=== PATIENT | female | born 1970 | race African-American/Black ===

== ENCOUNTER 2017-11-17 01:40 | Emergency (ER) | payer OTHER ==
[2017-11-17 02:09] VITALS: BP 134/80
--- NOTE | 2017-11-17 16:41 | EKG REPORT ---
SEVERITY:- NORMAL ECG - SINUS RHYTHM : Confirmed by: Cherie Stark 17-Nov-2017 16:41:21
== END 2017-11-17 03:10 | disposition left against medical advice (07) ==
LOC: ER 01:40
DX: Z53.21 Procedure and treatment not carried out due to patient leaving prior to being seen by health care provider (principal); M54.9 Dorsalgia, unspecified
CPT/HCPCS: 93005; 93010